=== PATIENT | female | born 1950 | race Caucasian/White ===

== ENCOUNTER 2018-03-13 16:49 | Emergency (ER) | payer OTHER, SELFPAY ==
[2018-03-13 16:50] VITALS: BP 153/74; PULSE 66; RESP 16; TEMP 36.3; O2SAT 95; BMI 23.1
--- NOTE | 2018-03-13 17:32 | ED.DCSUM_ITS ---
- ER Visit Summary Date of Service: 03/13/18 Chief Complaint: Nasal injury History of Present Illness: The patient is a 67 F was walking down the hallway and walked into a door that she did not see. She did not get knocked to the ground. She does have a small laceration across her nose and states that she did have a nosebleed that is now resolved. She denies headache or neck pain. Tetanus is up-to-date. Physical Examination: Vital signs significant for blood pressure 153/74, otherwise unremarkable. Patient sitting in a bedside chair no acute distress. Head neck examination reveals tenderness across the nasal bridge with mild edema. Is a 3 mm superficial laceration noted. There is no septal hematoma noted on intranasal exam. There is no active bleeding. C-spine is nontender. Heart is regular rate and rhythm. Lung sounds grossly clear. Neuro exam is unremarkable. Test Results: [] Emergency Department Course and Treatment: Wound was cleansed and Dermabond was placed. Patient be given aspirin as well as Keflex. We discussed nasal bone x- rays that she would prefer to avoid radiation. I recommended she see how her symptoms are in 2 weeks once the swelling has come down completely. If she has any cosmetic issues or has difficulty breathing she is to follow-up for x-ray and ENT evaluation. Treatment Plan: [] Disposition: Discharge Impression: Nasal laceration This note was generated with [employer] dictation software. It may contain incorrect words, spelling, and punctuation that were not noted in review of the chart prior to signing ED Disposition - Plan for ED Patient: Chief Complaint: Laceration Referrals: Kelly Sethi MD [Primary Care Provider] -
--- NOTE | 2018-03-13 17:32 | ED.DEP ---
ED Disposition - Plan for ED Patient: Disposition: Home or Assisted Living Chief Complaint: Laceration Instructions: ED Fx Nasal Laceration Sutr Or Tape, ED Contusion Nasal Vs Fx No X Ray Prescriptions: Cephalexin [Keflex] 500 mg PO Q6 #20 capsule Referrals: Kelly Sethi MD [Primary Care Provider] - 1-2 Weeks
[2018-03-13] MEDS: Cephalexin 250 MG Capsule 500 MG PO (17:34)
[2018-03-13] MEDS: Oxymetazoline 0.05% 1 SPRAY SPRAY.BTL 2 SPRAY NASAL (17:34)
== END 2018-03-13 17:47 | disposition home or self-care (01) ==
LOC: ED 17:40
PROVIDERS: Emergency Provider Emergency Medicine; Family Provider Internal Medicine; PCP Internal Medicine
DX: S01.21XA Laceration without foreign body of nose, initial encounter (principal); W22.01XA Walked into wall, initial encounter; Y93.89 Activity, other specified; Y92.9 Unspecified place or not applicable; Y99.8 Other external cause status
CPT/HCPCS: 99283